=== PATIENT | male | born 1940 | race Caucasian/White ===

== ENCOUNTER 2020-06-29 14:51 | Observation (INO) | payer MEDICARE ==
[2020-06-29] MEDS ORDERED: Ondansetron PF 4 MG/2 ML Vial IVP PRN (15:21)
[2020-06-29] MEDS ORDERED: Acetaminophen 325 MG TAB PO PRN (15:21)
[2020-06-29] MEDS ORDERED: Sodium Chloride 0.9% 1,000 ML IV SCH (15:30)
[2020-06-29] MEDS ORDERED: Dextrose 50% Abboject 50 ML SYRINGE SLOW IVP PRN (17:39)
[2020-06-29] MEDS ORDERED: Dextrose 5% in Water 1,000 ML IV PRN (17:39)
[2020-06-29] MEDS ORDERED: Insulin Regular 300 UNITS/3 ML VIAL SC PRN (17:39)
[2020-06-29 18:12] VITALS: BMI 29.2
[2020-06-29] MEDS: Heparin 5,000 UNITS/ML VIAL SC SCH (19:55)
[2020-06-29] MEDS: Potassium Chloride 20 MEQ TAB PO SCH (19:55)
[2020-06-29] MEDS: Sodium Chloride 0.9% 1,000 ML IV SCH (19:56)
[2020-06-29] MEDS: traMADol HCl 50 MG TAB PO SCH (20:05)
[2020-06-29] MEDS ORDERED: traMADol HCl 50 MG TAB PO SCH (21:00)
[2020-06-29] MEDS ORDERED: rOPINIRole HCl 1 MG TAB PO SCH ×2 (21:00)
[2020-06-30] MEDS: Sodium Chloride 0.9% 1,000 ML IV SCH ×2 (01:08→07:57)
[2020-06-30] MEDS: traMADol HCl 50 MG TAB PO SCH (03:15)
[2020-06-30 04:59] LABS: #Lymphocytes 0.6 thou/uL (1.20-3.40); #Monocytes 0.4 thou/uL (0.11-0.59); %Basophils 0.2 % (0.0-1.0); %Eosinophils 0.2 % (0.0-10.0); %Lymphocytes 15.3 % (21.0-51.0); %Monocytes 8.6 % (0.0-10.0); %Neutrophils 75.7 % (42.0-75.0); Hemoglobin 10.4 g/dL (14.0-18.0); Mean Corpuscular HGB CONC 34.5 g/dL (32.0-36.0); Mean Corpuscular Hemoglobin 31.2 pg (27.0-31.0); Mean Corpuscular Volume 90.5 fL (78.0-98.0); Mean Platelet Volume 6.4 fL (7.4-10.4); Platelet Count 186 thou/uL (130-400); RBC Distribution Width 12.1 % (11.5-14.5); Red Blood Cell (RBC) Count 3.34 mill/uL (4.70-6.10)
[2020-06-30 05:20] LABS: Anion Gap 9 mmol/L (10-20); BUN (Urea Nitrogen) 31 mg/dL (8.4-25.7); Calc. Creatinine Clearance 73 mL/min (70-130); Calcium 7.5 mg/dL (7.8-10.44); Carbon Dioxide 21 mmol/L (23-31); Chloride 110 mmol/L (98-107); Glucose 95 mg/dL (83-110); Potassium 3.4 mmol/L (3.5-5.1); Sodium 137 mmol/L (136-145)
[2020-06-30] MEDS: Heparin 5,000 UNITS/ML VIAL SC SCH (07:57)
[2020-06-30] MEDS: Potassium Chloride 20 MEQ TAB PO SCH (07:57)
[2020-06-30] MEDS ORDERED: rOPINIRole HCl 2 MG TAB PO SCH (08:00)
[2020-06-30] MEDS ORDERED: Pramipexole Di-HCl 0.25 MG TAB PO SCH (09:00)
[2020-06-30] MEDS ORDERED: Sodium Chloride 0.9% 500 ML IV SCH (09:00)
[2020-06-30 09:03] LABS: SARS-CoV-2 PCR by NAA Not Detected (NotDetected)
[2020-06-30] MEDS ORDERED: Potassium Chloride 20 MEQ TAB PO SCH (10:30)
[2020-06-30 12:23] VITALS: BP 138/66; TEMP 98.5
[2020-06-30] MEDS ORDERED: rOPINIRole HCl 1 MG TAB PO SCH (15:00)
== END 2020-06-30 14:33 | disposition home or self-care (01) ==
LOC: SUATTDRO 14:51 → ERS 14:51 → 2SW 15:00
PROVIDERS: ADMIT Internal Medicine; ATTEND Internal Medicine
DX: A05.9 Bacterial foodborne intoxication, unspecified (principal); R57.1 Hypovolemic shock; E87.2 Acidosis; I10 Essential (primary) hypertension; E11.9 Type 2 diabetes mellitus without complications; K21.9 Gastro-esophageal reflux disease without esophagitis; G25.81 Restless legs syndrome; E86.0 Dehydration; Z79.84 Long term (current) use of oral hypoglycemic drugs; Z79.899 Other long term (current) drug therapy; Z20.822 Contact with and (suspected) exposure to COVID-19
CPT/HCPCS: 80048; 85025; 99285; U0003; U0005; 36415; 87635; G0378; J1644